=== PATIENT | male | born 1990 | race African-American/Black ===

== ENCOUNTER → 2024-11-04 | Outpatient (CLI) | payer OTHER ==
[2024-11-04 14:58] LABS: PLATELET COUNT, AUTOMATED 238 10^3/uL (150-450)
[2024-11-04 15:21] LABS: CALCIUM LEVEL 9.2 MG/DL (8.5-10.1); CARBON DIOXIDE LEVEL 28.0 MMOL/L (20-31); CHLORIDE LEVEL 103.0 MMOL/L (98-107); CREATININE FOR GFR 1.16 MG/DL (0.70-1.30); GLOMERULAR FILTRATION RATE 85.3 (>60); POTASSIUM SERUM 3.5 MMOL/L (3.5-5.1); SODIUM LEVEL 143.0 MMOL/L (136-145)
== END ==
LOC: M RAD 14:11
PROVIDERS: ATTEND Nurse Practitioner Family
DX: Z01.818 Encounter for other preprocedural examination (principal)

== ENCOUNTER 2024-11-17 11:30 | Day surgery (SDC) | payer OTHER ==
[~2024-11-17] VITALS: Ht 167.6 cm; Wt 82.6 kg
[~2024-11-17 11:30] MED LIST: ceFAZolin SOD 2 GM IV ONCE IV ONE
[2024-11-17] MEDS ORDERED: MIDAZOLAM INJ 2 MG/2 ML VIAL As Ordered ONE (12:05)
[2024-11-17] MEDS ORDERED: LIDOCAINE 2% 100 MG/5 ML SDV (FOR ANES.) As Ordered ONE (12:05)
[2024-11-17] MEDS: LR 1,000 ML IV SCH (12:06)
[2024-11-17] MEDS ORDERED: ONDANSETRON 4MG 2ML VIAL As Ordered ONE (12:39)
[2024-11-17] MEDS ORDERED: dexAMETHasone 4 MG/ML 1 ML VIAL As Ordered ONE (12:39)
[2024-11-17] MEDS ORDERED: ACETAMINOPHEN 1000MG/100ML IV BAG As Ordered ONE (12:40)
[2024-11-17] MEDS ORDERED: KETOROLAC 30 MG/ML 1 ML VIAL As Ordered ONE (14:10)
[2024-11-17] MEDS ORDERED: ONDANSETRON 4MG 2ML VIAL IV PRN (14:15)
[2024-11-17] MEDS ORDERED: LR 1,000 ML IV SCH (14:15)
[2024-11-17] MEDS ORDERED: HYDROMORPHONE HCL 0.5 MG/0.5 ML SYRINGE IV PRN (14:15)
[2024-11-17] MEDS ORDERED: OXYC1TAB23 PO (14:32)
[2024-11-17 16:21] VITALS: BP 132/87; TEMP 98.2; O2SAT 100
== END 2024-11-17 17:05 | disposition home or self-care (01) ==
LOC: M SDC 11:30
PROVIDERS: ATTEND Urology
DX: N47.1 Phimosis (principal)
CPT/HCPCS: 54161; 88304; J0131; J1100; J1885; J2250; J2405; J3010